=== PATIENT | female | born 1925 | race Caucasian/White ===

== ENCOUNTER 2016-10-03 13:22 | Emergency (ER) | payer MEDICARE, OTHER ==
[2016-10-03 13:31] VITALS: RESP 18
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
--- NOTE | 2016-10-03 14:40 | XR ---
EXAMINATION TYPE: XR Hip Complete RT DATE OF EXAM: 10/03/2016 2:22 PM COMPARISON: NONE HISTORY: 89 year-old female right hip dislocation TECHNIQUE: AP and frog-leg lateral views FINDINGS: While there is eccentric positioning of the femoral head component of the prosthesis, there is no ari dence of dislocation. Ectopic ossification about the greater trochanter and superior aspect of the hi p joint. Some chronic retained metallic debris seen superior to the femoral neck component of the pro sthesis. As compared to 04/15/2015, there is new lucency throughout the greater trochanter. No peripros thetic fracture seen. IMPRESSION: 1. No evidence of prosthetic dislocation or acute fracture. 2. However, there is eccentric positioning of the femoral head component in the acetabular cup. Findi ngs suggest wear of the polyethylene spacer. Given new lucency within the greater trochanter as joann red to 2014, correlation should be made for loosening and particle disease.
[2016-10-03 17:41] VITALS: BP 183/75; PULSE 61; TEMP 97.6
== END 2016-10-03 17:41 | disposition home or self-care (01) ==
LOC: EC 13:22
DX: M25.551 Pain in right hip (principal); E11.9 Type 2 diabetes mellitus without complications; I11.0 Hypertensive heart disease with heart failure; I50.9 Heart failure, unspecified; E07.9 Disorder of thyroid, unspecified; Z95.0 Presence of cardiac pacemaker; Z96.641 Presence of right artificial hip joint; Z79.82 Long term (current) use of aspirin; Z79.84 Long term (current) use of oral hypoglycemic drugs; Z79.899 Other long term (current) drug therapy; Z88.0 Allergy status to penicillin; Z88.5 Allergy status to narcotic agent; Z87.891 Personal history of nicotine dependence
CPT/HCPCS: 73502; 99283

== ENCOUNTER 2017-01-28 09:51 | Emergency (ER) | payer MEDICARE, OTHER ==
[2017-01-28] MEDS ORDERED: SODIUM CHLORIDE 0.9% 1,000 ML IV STA (10:24)
[2017-01-28] MEDS ORDERED: ONDANSETRON 4 MG/2 ML VIAL IVP STA (10:24)
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
--- NOTE | 2017-01-28 12:17 | CT ---
EXAMINATION TYPE: CT brain wo con DATE OF EXAM: 01/28/2017 12:08 PM COMPARISON: 02/22/13 HISTORY: generalized weakness CT DLP: 953.[address] of the brain was performed. The ventricles, basal cisterns and sulci overlying the cerebral convexities demonstrate moderate enla rgement. There is no evidence for intracranial hemorrhage or sulcal effacement. There is decreased attenuation about the periventricular white matter and deep white matter of both c erebral hemispheres, compatible with chronic small vessel ischemia. Differential diagnosis does inclu de demyelination. No mass effects are seen.No midline shift. Osseous calvarium is intact. If symptoms persist consider MRI. IMPRESSION: 1. Age related atrophic and chronic small vessel ischemic change without acute intracranial process s een at this time.
[2017-01-28 12:57] LABS: Basophils # (A) 0.2 k/uL (0-0.2); Basophils % (A) 1 %; CH 34.7; CHCM 33.9; Eosinophils # (A) 0.1 k/uL (0-0.7); Eosinophils % (A) 1 %; HCT 38.8 % (34.0-46.0); HDW 3.15; HGB 13.2 gm/dL (11.4-16.0); Luc # (Auto) 0.42; Luc % (Auto) 2; Lymphocytes # (A) 8.5 k/uL (1.0-4.8); Lymphocytes % (A) 44 %; MCHC 33.9 g/dL (31.0-37.0); Macrocytosis Slight; Mean Platelet Volume 7.8; Monocytes # (A) 1.3 k/uL (0-1.0); Monocytes % (A) 7 %; Neutrophils # (A) 8.8 k/uL (1.3-7.7); Neutrophils % (A) 46 %; RBC 3.76 m/uL (3.80-5.40); RDW 13.9 % (11.5-15.5); WBC 19.3 k/uL (3.8-10.6); WBC (Perox) 17.41
[2017-01-28 13:01] LABS: MCV 103.1 fL (80.0-100.0)
--- NOTE | 2017-01-28 13:05 | XR ---
EXAMINATION TYPE: XR abdomen acute w cxr DATE OF EXAM: 01/28/2017 12:15 PM COMPARISON: NONE HISTORY: Vomiting and shortness of breath TECHNIQUE: Single AP chest upright and supine views abdomen FINDINGS: Filter is within the lower abdomen. Vascular calcification is present. Nonspecific bowel ga s is present. Air is within the colon. Small bowel loops contain air within the left midabdomen. Degenerative changes are within the scoliotic lumbar spine. Right hip prosthesis is present. No suspicious air-fluid levels or differential air-fluid levels are present. No free air is present. An old fracture of the left neck is present. Right shoulder prosthesis is present. IMPRESSION: 1. Nonspecific abdomen.
[2017-01-28 13:06] LABS: INR 1.1 (<1.1); Prothrombin Time 11.2 sec (9.0-12.0)
[2017-01-28 13:14] LABS: Creatine Kinase <20 U/L (30-135)
[2017-01-28 13:19] LABS: ALT 24 U/L (9-52); AST 36 U/L (14-36); Alkaline Phosphatase 96 U/L (38-126); Amylase 53 U/L (30-110); Anion Gap 11 mmol/L; Blood Urea Nitrogen 36 mg/dL (7-17); Calcium 9.7 mg/dL (8.4-10.2); Carbon Dioxide 27 mmol/L (22-30); Chloride 102 mmol/L (98-107); Glucose 142 mg/dL (74-99); Non-African American GFR(MDRD) >60 (>60 ml/min/1.73 sqM); Potassium 4.8 mmol/L (3.5-5.1); Sodium 140 mmol/L (137-145); Total Bilirubin 0.8 mg/dL (0.2-1.3); Total Protein 7.1 g/dL (6.3-8.2)
[2017-01-28 13:27] LABS: Creatine Kinase MB 0.8 ng/mL (0.0-2.4); Troponin I 0.021 ng/mL (0.000-0.034)
[2017-01-28] MEDS ORDERED: METOCLOPRAMIDE 5 MG/ML 2 ML VIAL IVP STA (13:52)
[2017-01-28 14:52] LABS: Amorphous Sediment,Urine Rare /hpf; Appearance,Urine Clear (Clear); Bilirubin,Urine Negative (Negative); Glucose,Urine (UA) Negative (Negative); Ketones,Urine 1+ (Negative); Leukocyte Esterase,Urine Negative (Negative); Mucus,Urine Rare /hpf; Nitrite,Urine Negative (Negative); PH, Urine 5.5 (5.0-8.0); Particle Count 873; Protein,Urine 1+ (Negative); Specific Gravity,Urine 1.021 (1.001-1.035); Squamous Epithelial Cell,Urine <1 /hpf (0-4); UA Billing (MACRO vs. MICRO) MICRO; Urobilinogen,Urine <2.0 mg/dL (<2.0); WBC,Urine <1 /hpf (0-5)
[2017-01-28 15:26] VITALS: BP 174/72; PULSE 60; RESP 18; TEMP 97.2
== END 2017-01-28 15:25 | disposition home or self-care (01) ==
LOC: EC 09:51
DX: R13.10 Dysphagia, unspecified (principal); R11.2 Nausea with vomiting, unspecified; R94.31 Abnormal electrocardiogram [ECG] [EKG]; I10 Essential (primary) hypertension; E07.9 Disorder of thyroid, unspecified; E11.9 Type 2 diabetes mellitus without complications; Z87.891 Personal history of nicotine dependence; Z88.5 Allergy status to narcotic agent; Z88.0 Allergy status to penicillin; Z79.84 Long term (current) use of oral hypoglycemic drugs; Z79.82 Long term (current) use of aspirin; Z79.899 Other long term (current) drug therapy
CPT/HCPCS: 99284; 96374; 96375; 96361 ×3; 36415; 93005; 83880; 80053; 82150; 82550; 82553; 83690; 84443; 84484; 85025; 85610; 85730; 81001; 74022; 70450; J2765; J2405

== ENCOUNTER 2017-03-28 20:38 | Inpatient (IN) | payer MEDICARE, OTHER ==
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
[2017-03-28 22:17] LABS: Anisocytosis Slight; Basophils % (A) 0 %; CH 33.9; Eosinophils % (A) 0 %; HCT 33.8 % (34.0-46.0); HGB 11.3 gm/dL (11.4-16.0); Hypochromasia Slight; Luc # (Auto) 0.14; Luc % (Auto) 1; Lymphocytes % (A) 17 %; MCHC 33.5 g/dL (31.0-37.0); MCV 104.3 fL (80.0-100.0); Macrocytosis Moderate; Mean Platelet Volume 7.7; Monocytes # (A) 0.5 k/uL (0-1.0); Monocytes % (A) 4 %; Neutrophils % (A) 77 %; Poikilocytosis Slight; RBC 3.24 m/uL (3.80-5.40); WBC 11.7 k/uL (3.8-10.6); WBC (Perox) 11.49
[2017-03-28 22:21] LABS: Appearance,Urine Clear (Clear); Bacteria,Urine Occasional /hpf; Bilirubin,Urine Negative (Negative); Glucose,Urine (UA) Negative (Negative); Granular Casts,Urine 17 /lpf (0); Ketones,Urine 1+ (Negative); Leukocyte Esterase,Urine Negative (Negative); Mucus,Urine Rare /hpf; Nitrite,Urine Negative (Negative); PH, Urine 5.5 (5.0-8.0); Particle Count 4044; Protein,Urine 1+ (Negative); RBC,Urine 5 /hpf (0-5); Specific Gravity,Urine 1.018 (1.001-1.035); Squamous Epithelial Cell,Urine <1 /hpf (0-4); UA Billing (MACRO vs. MICRO) MICRO; Urobilinogen,Urine <2.0 mg/dL (<2.0); WBC,Urine 3 /hpf (0-5)
[2017-03-28 22:34] LABS: Calcium 9.2 mg/dL (8.4-10.2); Potassium 5.2 mmol/L (3.5-5.1); Total Bilirubin 0.4 mg/dL (0.2-1.3); Total Protein 6.3 g/dL (6.3-8.2)
--- NOTE | 2017-03-28 22:52 | CT ---
EXAM: CT Head Without Intravenous Contrast CLINICAL HISTORY: Reason: Pain. Recent falls TECHNIQUE: Axial computed tomography images of the head/brain without intravenous contrast. CTDI is 57.40 mGy and DLP is 958.40 mGy-cm. This CT exam was performed using one or more of the following dose reduction techniques: automated exposure control, adjustment of the mA and/or kV according to patient size, and/or use of iterative reconstruction technique. COMPARISON: CT head on 01/28/2017 FINDINGS: Brain: No acute infarct or hemorrhage identified. No extra-axial fluid collection. No mass effect or midline shift. Stable scattered areas of hypoattenuation in the supratentorial white matter likely represent chronic small vessel ischemic changes. Probable tiny remote lacunar infarcts in the basal ganglia. Ventricles and sulci: Stable prominence of the ventricles and sulci is likely secondary to cerebral volume loss. Skull: Mild hyperostosis frontalis interna. No bony lesion or fracture. Cerclage wire partially visualized around the posterior spinous processes of the upper cervical spine. Subcutaneous tissues: Normal. Sinuses: Normal. No air-fluid levels or mucosal thickening. Orbits: Bilateral lens implants. Other: Atherosclerotic calcifications in the intracranial vasculature. IMPRESSION: 1. No acute intracranial abnormality. 2. Stable chronic small vessel ischemic changes and cerebral volume loss.
--- NOTE | 2017-03-28 23:14 | XR ---
EXAM: XR Pelvis, 1 or 2 Views CLINICAL HISTORY: Reason: Right hip pain status post fall TECHNIQUE: Frontal view of the pelvis. COMPARISON: Pelvis radiographs on 08/02/2016 FINDINGS: Bones/joints: No acute fracture or dislocation identified. Changes of right total hip arthroplasty with stable appearance of the hardware. No hardware complication. Generalized osteopenia. Degenerative changes of the left hip. The left superior and inferior pubic rami appear similar compared to prior exam in 2016 without definite acute fracture identified, but evaluation is limited by rotation. Soft tissues: IVC filter projected over the lower abdomen. Vascular calcifications. IMPRESSION: Stable changes of right total hip arthroplasty. No definite acute abnormality identified.
--- NOTE | 2017-03-28 23:18 | XR ---
EXAM: XR Chest, 2 Views CLINICAL HISTORY: Reason: Pain status post fall TECHNIQUE: Frontal and lateral views of the chest. COMPARISON: None FINDINGS: Lungs/pleura: Elevation of the left hemidiaphragm with mild left basilar atelectasis. No focal consolidation. No pleural effusion or pneumothorax. Heart/mediastinum: Enlargement of the cardiac silhouette. Atherosclerotic calcifications in the aorta. Left-sided pacemaker in place. Soft tissues: Unremarkable. Bones: No acute fracture. Right shoulder arthroplasty partially visualized on frontal view. Prominent degenerative changes of the left shoulder partially visualized. Osteopenia. Degenerative changes of the spine with age-indeterminate compression deformity of a midthoracic vertebral body. IMPRESSION: 1. Elevation of the left hemidiaphragm with mild left basilar atelectasis. No focal consolidation, pleural effusion, or pneumothorax. 2. Age-indeterminate compression deformity of a midthoracic vertebral body
[2017-03-28] MEDS ORDERED: ONDANSETRON 4 MG/2 ML VIAL IVP STA (23:43)
[2017-03-28] MEDS ORDERED: SODIUM CHLORIDE 0.9% 1,000 ML IV STA ×2 (23:45)
[2017-03-29] MEDS ORDERED: ONDANSETRON 4 MG/2 ML VIAL IVP PRN (00:27)
[2017-03-29] MEDS ORDERED: NALOXONE 0.4 MG/ML 1 ML VIAL IV PRN (00:27)
[2017-03-29 00:53] LABS: ABG Base Excess -12.3 mmol/L; ABG HCO3 11 mmol/L (21-25); ABG Oxygen Saturation 97.8 % (94-97); ABG PH 7.39 (7.35-7.45); ABG PO2 89 mmHg (83-108)
[2017-03-29 00:55] LABS: ABG PCO2 18 mmHg (35-45)
[2017-03-29] MEDS: LEVOTHYROXINE 88 MCG TAB PO SCH (06:08)
[2017-03-29 07:04] LABS: Creatine Kinase MB 5.7 ng/mL (0.0-2.4); Troponin I 1.21 ng/mL (0.000-0.034)
[2017-03-29] MEDS ORDERED: ALPHA LIPOIC ACID 600 MG PO SCH (09:00)
[2017-03-29] MEDS ORDERED: PRIMROSE OIL PO SCH (09:00)
[2017-03-29] MEDS ORDERED: NON-FORMULARY DRUG (Cinnamon Bark [Cinnamon] 1,000 MG) PO SCH (09:00)
[2017-03-29] MEDS ORDERED: CHROMIUM PICOLINATE 200 MCG PO SCH (09:00)
[2017-03-29] MEDS: ENOXAPARIN 40 MG/0.4 ML SYRINGE SQ SCH (10:32)
[2017-03-29] MEDS: PANTOPRAZOLE 40 MG TABLET PO SCH (10:32)
[2017-03-29 11:26] LABS: Calcium 8.4 mg/dL (8.4-10.2); Potassium 4.8 mmol/L (3.5-5.1)
[2017-03-29] MEDS ORDERED: BISACODYL 10 MG SUPP RECTAL STA (11:26)
[2017-03-29 11:53] LABS: Creatine Kinase MB 7.2 ng/mL (0.0-2.4); Troponin I 1.36 ng/mL (0.000-0.034)
[2017-03-29] MEDS: CHOLECALCIFEROL 1,000 UNIT TAB PO SCH (12:43)
[2017-03-29] MEDS: ASCORBIC ACID 500 MG TAB PO SCH (12:43)
[2017-03-29] MEDS: VITAMIN E (DL,TOCOPHERYL ACET) 400 UNIT CAP PO SCH (12:43)
[2017-03-29] MEDS: B COMPLEX-VIT C-VIT E-ZINC 1 EACH TAB PO SCH (12:43)
[2017-03-29] MEDS: CALCIUM CARB-VIT D 500MG-200UN 1 EACH TAB PO SCH (12:43)
[2017-03-29 17:32] LABS: Glucose,Whole Blood 146 mg/dL (75-99)
[2017-03-29] MEDS: metFORMIN 500 MG TAB PO SCH (18:35)
[2017-03-29] MEDS: TRIMETHOPRIM 100 MG TAB PO SCH (20:35)
[2017-03-30] MEDS: LEVOTHYROXINE 88 MCG TAB PO SCH (06:20)
[2017-03-30] MEDS: ENOXAPARIN 40 MG/0.4 ML SYRINGE SQ SCH (07:45)
[2017-03-30] MEDS: PANTOPRAZOLE 40 MG TABLET PO SCH (07:46)
[2017-03-30] MEDS: metFORMIN 500 MG TAB PO SCH ×2 (07:46→17:08)
[2017-03-30] MEDS: SODIUM BICARBONATE TAB 650 MG TAB PO SCH ×3 (07:48→19:05)
[2017-03-30 08:10] LABS: Anisocytosis Slight; CHCM 32.5; HCT 35.6 % (34.0-46.0); HDW 3.82; HGB 11.5 gm/dL (11.4-16.0); Hypochromasia Moderate; MCH 34.4 pg (25.0-35.0); MCHC 32.3 g/dL (31.0-37.0); MCV 106.5 fL (80.0-100.0); Macrocytosis Marked; Mean Platelet Volume 7.8; Poikilocytosis Slight; RBC 3.34 m/uL (3.80-5.40); RDW 17.7 % (11.5-15.5); WBC 14.6 k/uL (3.8-10.6); WBC (Perox) 15.45
[2017-03-30 08:27] LABS: Calcium 8.6 mg/dL (8.4-10.2); Potassium 4.5 mmol/L (3.5-5.1)
[2017-03-30 09:08] LABS: Add Differential Manual Differential
[2017-03-30 09:09] LABS: Nucleated Red Blood Cells 0 /100 WBC (0-0); Total Cells Counted 100
[2017-03-30 09:10] LABS: Crenated RBC Present
--- NOTE | 2017-03-30 10:12 | HP ---
CHIEF COMPLAINT: Falls at home. HISTORY OF PRESENT ILLNESS: This 89 year old female was brought into the emergency room with some altered mental status and a couple of falls at home. The patient lives in [facility]. The falls were not witnessed. The patient apparently there was some conversation that the patient had just got weak and legs came out. This was according to the son. This is some of the data collected from caregivers. The patient otherwise denied any symptoms of chest pain, shortness of breath, headaches or dizziness. The patient was evaluated in the emergency room and noted to have no evidence of any head injury. The patient has been gradually feeling ill for the past about a year now. She is fairly weak. Her intake is fair. PAST MEDICAL HISTORY: Significant for hypertension for longstanding history. History of chronic lymphocytic leukemia. 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 The patient is also asplenic. PAST SURGICAL HISTORY: Significant for hip surgeries, splenectomy. She did have a cervical spine fracture for which she had a halo placed and no surgical intervention. PERSONAL HISTORY: Never a smoker, alcohol none. Medications include: 1. Metformin 1000 mg daily. 2. Vitamin E. 3. Vitamin B. 4. ( ). 5. Omeprazole 40 mg daily. 6. Levothyroxine 88 mcg daily. 7. Cinnamon. 8. Acromion. 9. Vitamin D3. 10. Calcium. 11. Magnesium. 12. Ascorbic acid. 13. ( ). SOCIAL HISTORY: The patient is and lives at the [facility]. Son and daughter pay good attention. FAMILY MEDICAL HISTORY: The patient's mother had hypertension, dementia. She has one younger sister living with fair health. The patient has two sons. One son had a history of coronary artery disease and aortic aneurysm repair. The other son has history of alcohol dependency. The patient has a daughter who has had a history of aortic aneurysm repair. REVIEW OF SYSTEMS: NEURO: Denies any headaches. Dizziness. PSYCH: No history of anxiety or depression. CARDIAC: Denies chest pain, angina or palpitations. RESPIRATORY: Denies shortness of breath but does appear mildly tachypneic. GI: Denies any nausea, vomiting, abdominal pain or diarrhea. Has constipation. : No symptoms of dysuria or hematuria. Has no incontinence or frequency. She does not take her Lasix. EXTREMITIES: Has some chronic lower distal extremity pain, edema and has chronic hip pain. CONSTITUTIONAL: No fever or chills. HEMATOLOGICAL: No anemia or bleeding disorder. Does have a history of lymphocytic leukemia. SKIN: Fragile. ENT: Decreased hearing. EYES: Some decreased vision. PHYSICAL EXAMINATION: Elderly female pleasant but mildly confused compared to her usual pleasant demeanor. Vital signs reveals temperature 97.2, pulse 61, respirations 18, blood pressure 118/58. Pulse ox 98%. HEENT: Normocephalic. NECK: Decreased range of motion. Pupils are reactive. Nostrils clear. Oral cavity is dry. Ears reveals no drainage, Neck reveals no JVD or carotid bruits. No thyromegaly. No supraclavicular lymph nodes. CHEST: Clear to auscultation. Decreased air flow at the left base. CARDIAC: Distant heart sounds, S1, S2 with no gallops. Regular rhythm. Systolic murmur 2/6 left sternal border. Abdomen is soft. No palpable masses. Bowel sounds normal. No organomegaly. No abdominal bruits. Extremities reveals trace edema. Decreased range of motion at the hip joints. Neurologically awake, mildly lethargic. Does recognize who I am. Speech is softer than usual. Does move both upper extremities fairly well and lower extremities well with decreased range of motion. The patient does have generalized weakness, muscle mass and decreased generalized tone. Deep tendon reflexes are decreased. Plantars are equivocal bilateral. Laboratory assessment: Electrolytes which revealed hemoglobin of 11.3. White count of 11.7. Platelet 290,000. Blood gases revealed a pH of 7.3 and PCO2 18 , PO2 89, electrolytes revealed sodium 139, potassium 5.2, chloride 106, CO2 content 12 with an anion gap of 21. BUN 42, creatinine 1.80, glucose 175. AST 42, troponin 0.048. BNP 7.70. ( ) 1.210. EKG did reveal pacemaker rhythm with T-wave inversions. ASSESSMENT: 1. Falls at home. 2. Hyperkalemia. 3. Acute on chronic renal failure. 4. Combination of mild respiratory alkalosis and metabolic acidosis. 5. Elevated troponins, suspect supply demand status. 6. Pacemakers status. 7. Encephalopathy. PLAN: Continue present medical regimen with IV hydration. The patient's electrolytes rechecked today. Potassium down to 4.8. Anion gap down to 18. BUN 45, creatinine down to 1.69. Continue present medical regimen with hydration. The patient's condition discussed with the patient's son and the patient. The patient will be a NO CODE STATUS as per previous request. Prognosis remains guarded. The patient may require placement at nursing facility for rehab and if it does not show any improvements, but probably be a best candidate for hospice. AISHAD
--- NOTE | 2017-03-30 12:59 | P.PN ---
Subjective Principal diagnosis: History present illness: This 89-year-old was admitted to the hospital after falling couple of times at home. The falls are noted to be secondary to generalized weakness. The patient had evidence of some dehydration which is being corrected. She was acidotic /respiratory alkalosis. Her cardiac enzymes were elevated however suspect this is due to demand supply related patient does have history patient does have history of arthrosclerotic heart disease and is a pacemaker. Due to her advanced age and multiple other ailments she is not somebody who requires further cardiac evaluation. Patient does have generalized weakness is arousable but is drowsy she is somewhat confused. She didn't recognize. Promptly by my name. Her intake is poor. Condition discussed with the patient's son and [id number]. Prognosis remains guarded May require placement versus hospice. We'll review regarding that tomorrow if she doesn't make any headway. REVIEW OF systems: Very limited. Patient does complain of aches and pains otherwise denies chest pain shortness of breath patient noted to be mildly tachypneic. Does say that she is hungry yet she doesn't eat when offered. No reported fever chills. Urinary incontinence/ bowel movement post suppository Objective - Vital Signs Vital signs: Vital Signs Temp 97.3 F L 03/30/17 07:00 Pulse 82 03/30/17 07:00 Resp 18 03/30/17 07:00 BP 134/64 03/30/17 07:00 Pulse Ox 97 03/30/17 07:00 Intake & Output 03/29/17 03/30/17 03/30/17 18:59 06:59 18:59 Intake Total 800 830 Balance 800 830 Intake: IV 240 ns@20 240 Intake, IV Titration 800 Amount Sodium Chloride 0.9% 1, 800 000 ml @ 100 mls/hr IV . Q10H STA Rx#:[id number] Oral 590 Other: Voiding Method Bedside Commode Bedside Commode Bedpan Incontinent # Voids 3 2 # Bowel Movements 3 PHYSICAL EXAMINATION: Cooperative, at present in no acute distress. HEENT: Neck supple. No JVD. Chest: Clear to auscultation Cardiac: Normal S1-S2 no gallops left sternal border systolic murmur . Abdomen: Soft bowel sounds present. Extremities: No edema no tenderness Neurologically : Sleeping, easily arousable but falls back to sleep very easily. Does move upper extremities adequately - Labs CBC & Chem 7: 03/30/17 07:33 03/30/17 07:33 Labs: Abnormal Lab Results - Last 24 Hours (Table) 03/29/17 03/30/17 03/30/17 Range/Units 17:30 07:33 07:33 WBC 14.6 H (3.8-10.6) k/uL RBC 3.34 L (3.80-5.40) m/uL MCV 106.5 H (80.0-100.0) fL RDW 17.7 H (11.5-15.5) % Neutrophils # (Manual) 8.8 H (1.3-7.7) k/uL Monocytes # (Manual) 1.2 H (0-1.0) k/uL Chloride 114 H (98-107) mmol/L Carbon Dioxide 12 L (22-30) mmol/L BUN 58 H (7-17) mg/dL Creatinine 1.72 H (0.52-1.04) mg/dL POC Glucose (mg/dL) 146 H (75-99) mg/dL Assessment and Plan Plan: ASSESSMENT: 1. Altered mental status. 2. Dehydration. 3. Chronic kidney disease. 4. Acute renal failure secondary to dehydration. 5. Mixed metabolic acidosis and respiratory alkalosis. 6. Hyperkalemia resolved. 7. Marked debility. 8. Chronic lymphocytic leukemia. PLAN: Continue present medical regimen with hydration, prognosis remains guarded. Depending on how she does in the next 24 hours final decision to be made regarding hospice versus rehab..
[2017-03-30] MEDS: ASCORBIC ACID 500 MG TAB PO SCH (14:57)
[2017-03-30] MEDS: B COMPLEX-VIT C-VIT E-ZINC 1 EACH TAB PO SCH (14:58)
[2017-03-30] MEDS: CALCIUM CARB-VIT D 500MG-200UN 1 EACH TAB PO SCH (14:58)
[2017-03-30] MEDS: VITAMIN E (DL,TOCOPHERYL ACET) 400 UNIT CAP PO SCH (14:58)
[2017-03-30] MEDS: CHOLECALCIFEROL 1,000 UNIT TAB PO SCH (14:58)
[2017-03-30] MEDS: ACETAMINOPHEN TAB 325 MG TAB PO PRN (19:04)
[2017-03-30] MEDS: TRIMETHOPRIM 100 MG TAB PO SCH (19:05)
[2017-03-31] MEDS: LEVOTHYROXINE 88 MCG TAB PO SCH (06:05)
[2017-03-31] MEDS ORDERED: SODIUM CHLORIDE 0.9% 1,000 ML IV SCH (06:45)
[2017-03-31 07:43] LABS: Calcium 8.1 mg/dL (8.4-10.2)
[2017-03-31 07:45] LABS: Potassium 5.5 mmol/L (3.5-5.1)
[2017-03-31 07:51] VITALS: BP 130/62; PULSE 62; RESP 16; TEMP 97.5
[2017-03-31] MEDS: metFORMIN 500 MG TAB PO SCH (08:59)
[2017-03-31] MEDS: PANTOPRAZOLE 40 MG TABLET PO SCH (08:59)
[2017-03-31 10:38] VITALS: BMI 23.8
[2017-03-31] MEDS: ACETAMINOPHEN TAB 325 MG TAB PO PRN ×2 (11:43→15:51)
[2017-03-31] MEDS ORDERED: LORazepam 2 MG/ML SYRINGE IV PRN (21:31)
[2017-03-31] MEDS ORDERED: HYDROmorphone 2 MG TAB PO PRN (21:39)
--- NOTE | 2017-04-01 08:32 | PN ---
CHIEF COMPLAINT: Reevaluation. HISTORY OF PRESENT ILLNESS: This 89-year-old was admitted to the hospital with falls at home. The patient's general condition is declining. Her renal function is worsening. Patient' general condition is discussed with the patient 's family and recommended hospice terminal care. They are in acceptance of that. The patient will be transferred to hospice. The patient is arousable, talks. She recognizes me well. However, the patient will not be able to swallow food and is declining to eat much. REVIEW OF SYSTEMS: NEURO: Denies any headaches, dizziness. PSYCH: Anxiety. CARDIAC: Denies chest pain, palpitation. RESPIRATORY: Denies shortness of breath, cough. GI: No nausea, vomiting, abdominal pain. : No symptoms of dysuria or hematuria. EXTREMITIES: No pain. Does complain of some back pain. CONSTITUTIONAL: No fever or chills. PHYSICAL EXAMINATION: A very pleasant elderly female. Temperature 97.3, pulse 88, respirations 18, blood pressure 134/64, pulse ox 97% on room air. HEENT: Normocephalic. NECK: No JVD. CHEST: Clear to auscultation. CARDIAC: Normal S1, S2 with no gallops. Systolic murmur 2/6 left sternal border. ABDOMEN: Soft. Bowel sounds present. Extremities reveal trace edema. NEUROLOGICAL: Awake, alert to person and place. Moves both upper extremities adequately. LABORATORY ASSESSMENT: White count 14.6, hemoglobin 11.5, platelets 213. Sodium 141, potassium 5.5, chloride 115, CO2 content 11, anion gap 15, BUN 72, creatinine 2.21. Glucose was 58. ASSESSMENT: 1. Acute on chronic renal failure. 2. Mild hyperkalemia. 3. Chronic lymphocytic leukemia. 4. Encephalopathy. PLAN: The patient at present stable. Continue present medical regimen. After discussion with the patient's family, we have elected no IV hydration. The patient will be made comfortable and will be transferred home under hospice services. Prognosis remains poor. MTDD
--- NOTE | 2017-04-02 15:56 | CDI ---
In responding to this query, please exercise your independent professional judgment. The [facility] Coding Staff and Clinical Documentation Specialists appreciate your assistance in clarifying documentation, maintaining compliance with coding guidelines, accurately documenting patients condition and capturing severity of illness. The fact that a question is asked does not imply that any particular answer is desired or expected. Communication forms are a method of clarifying documentation and are not made part of the Legal Health Record. Thank you in advance for your clarification. Last Revision, July 2015 Shannan Diallo [address] [place] [address] Documentation Clarification Form Mortality Review Date: 04/02/2017 3:43:00 PM From: Divya Klein RN, CCDS Admit Date: 03/29/2017 12:31:00 AM Patient Name: Az Hogan Visit Number: [id number] Dr. Bernardo Daugherty Encephalopathy is documented in the H&P and Progress Notes and requires further specifity History/Risk factors: dementia, recent falls, HTN, CLL, ASHD, DM, CKD Clinical Indicators: 03/31 Attending Progress Note: "The patient's general condition is declining. Her renal function is worsening. Encephalopathy." Labs: WBC: 11.7, Hgb 11.3, k+ 5.2/4.8, BUN 42/45, CR 1.8/1.69, CKMB: 5.7/7.2, Trop .458/1.21/1.36, BNP 7170 CT Brain: Stable c sm vessel ischemic changes and cerebral volume loss Treatment: IVF, IVF bolus In your professional opinion, can you please clarify the specific type of encephalopathy, if known? Metabolic Encephalopathy Septic Encephalopathy Toxic Encephalopathy Traumatic Encephalopathy Other, please specify Unable to determine Please document in your progress notes and discharge summary in order to capture severity of illness and risk of mortality. Include clinical findings that support your diagnosis. FYI: Press F11 to launch patient chart. Place X here if this finding has no clinical significance, is not applicable or if you are not able to provide any additional documentation. MTDD
--- NOTE | 2017-04-02 16:07 | CDI ---
In responding to this query, please exercise your independent professional judgment. The [facility] Coding Staff and Clinical Documentation Specialists appreciate your assistance in clarifying documentation, maintaining compliance with coding guidelines, accurately documenting patients condition and capturing severity of illness. The fact that a question is asked does not imply that any particular answer is desired or expected. Communication forms are a method of clarifying documentation and are not made part of the Legal Health Record. Thank you in advance for your clarification. Last Revision, July 2015 Shannan Diallo [address] [place] [address] Documentation Clarification Form Mortality Review Date: 04/02/2017 3:56:00 PM From: Divya Klein RN, CCDS Admit Date: 03/29/2017 12:31:00 AM Patient Name: Az Hogan Visit Number: [id number] Dr. Bernardo Daugherty History/Risk Factors : CKD, DM, HTN, CLL Clinical Indicators : Current BUN: 42/45/58/72 CR: 1.8/1.69/1.72/2.21 GFR: 26/28/21 02/18/17Patients Baseline: BUN/CR/GFR:35/1.02/51 03/31 Attending Progress Note: :"The patient's general condition is declining. Her renal function is worsening. Acute on chronic renal failure." Treatment: IVF, IVF Bolus In order to capture the severity of condition, please clarify if the condition signifies: CKD Stage 1 (GFR > 90) CKD Stage 2 (GFR 60-89) CKD Stage 3 (GFR 30-59) CKD Stage 4 (GFR 15-29) CKD Stage 5 (GFR <15) ESRD Unable to determine Other condition, please specify Please document in your progress notes and discharge summary in order to capture severity of illness and risk of mortality. Include clinical findings that support your diagnosis. FYI: Press F11 to launch patient chart. Place X here if this finding has no clinical significance, is not applicable or if you are not able to provide any additional documentation. MTDD
--- NOTE | 2017-04-02 16:18 | CDI ---
In responding to this query, please exercise your independent professional judgment. The [facility] Coding Staff and Clinical Documentation Specialists appreciate your assistance in clarifying documentation, maintaining compliance with coding guidelines, accurately documenting patients condition and capturing severity of illness. The fact that a question is asked does not imply that any particular answer is desired or expected. Communication forms are a method of clarifying documentation and are not made part of the Legal Health Record. Thank you in advance for your clarification. Last Revision, July 2015 Shannan Diallo [address] [facility] [place] [address] Documentation Clarification Form Mortality review Date: 04/02/2017 4:07:00 PM From: Divya Klein RN, CCDS Admit Date: 03/29/2017 12:31:00 AM Patient Name: Az Hogan Visit Number: [id number] Dr. Bernardo Rose pressure ulcer was documented in the nursing assessments. History/Risk Factors: Dementia, recent falls, dehydration, nausea, KYLE Clinical Indicators: 03/30 2050 Wound rail specialist: "pressure Injury Coccyx, stage 2." Skin assessment on admission notes: slight breakdown to buttocks." 03/30 2047 skin assessment has changed to stage 2 bed sore, fragile with erythema." Location: Buttocks and Coccyx Wound description: see nursing documentation above Treatment: Deuoderm Dietary consult with Mohanerdaniel ordered for additional protein Elements for accurate and compliant documentation of an ulcer: * The location/laterality of the ulcer * Etiology (decubitus/pressure, diabetic, PVD) * Stage I-IV, Unstageable, Suspected Deep Tissue Injury (To the deepest stage) * If the ulcer was present at admission (POA) or occurred after admission In your professional opinion, can you please clarify the diagnosis, location, laterality and whether present on admission (POA): Stage 1 Pressure/Decubitus Ulcer (intact skin, non-blanching redness of local area) Stage 2 Pressure/Decubitus Ulcer (Partial thickness, loss of dermis, pink wound bed) Stage 3 Pressure/Decubitus Ulcer (Full thickness tissue loss) Stage 4 Pressure/Decubitus Ulcer (Full thickness tissue loss with exposed bone, tendon, or muscle. May have slough or eschar present) Unstageable Unable to determine Other condition, please specify *Please indicate cause (if known). Please document in your discharge summary in order to capture severity of illness and risk of mortality. Include clinical findings that support your diagnosis. FYI: Press F11 to launch patient chart. DALLIN
--- NOTE | 2017-04-27 13:21 | P.DS ---
Providers Date of admission: 03/29/17 00:31 Attending physician: Bernardo Daugherty Primary care physician: eBrnardo Daugherty Hospital Course: History present illness/Hospital course: This 89-year-old female was admitted to the hospital after being brought to emergency room because of frequent falling at home. The patient lives at the [facility], the patient son gives some history. The patient had just got weak in the legs and given out. No true significant fall. The patient did have a CAT scan of the brain done which did not reveal any acute infarct or changes. The patient did exhibit confusion. She has had mild cognitive impairment but this was more than her usual status. There was no delirium. The patient had no evidence to suggest any infection. Her renal function showed evidence of acute renal failure. The patient does have a history of chronic kidney disease stage III. She is also nutritionally depleted to some degree partly due to advanced age and chronic illnesses. She did have a small sacral decubitus stage II with no evidence of infection. She is also known to have chronic lymphocytic leukemia. 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 No evidence of any significant infection. Following admission patient' s sudden IV hydration due to dehydration. He did show some improvement in her general status however was markedly debilitated and due to decreased urine output and progressive azotemia with a discussion with the family and recommended hospice care to which they were agreeable. The patient actually before the hospice nurse came to see the patient. She had History of hypertensive cardiovascular disease and ASHD. She has significant degenerative arthritis affecting the hip joints. History of diabetes mellitus adequately controlled. History of hypothyroidism on replacement therapy. Final diagnosis to include 1. Acute on chronic renal failure 2. Acute tubular necrosis causing renal failure 3. Dehydration 4. Chronic lymphocytic leukemia 5. Metabolic encephalopathy 6. Diabetes mellitus with peripheral neuropathy 7. Chronic kidney disease stage III 8. Debility 9. Nutritional status 10. 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 Hypothyroidism 13. Hypertensive cardio vascular disease and ASHD Patient Condition at Discharge: Undetermined Plan - Discharge Summary New Discharge Prescriptions: No Action Trimethoprim [Trimpex] 50 mg PO HS Levothyroxine Sodium [Synthroid] 88 mcg PO DAILY Ascorbic Acid [Vitamin C] 1,000 mg PO QAM Vitamin B Complex 1 cap PO QAM Cholecalciferol [Vitamin D3] 1,000 unit PO QAM metFORMIN HCL [metFORMIN HCL ER] 1,000 mg PO AC-SUPPER Alpha Lipoic Acid 600mg 1 tab PO DAILY Cinnamon Bark [Cinnamon] 1,000 mg PO DAILY Chromium Picolinate 200 mcg PO DAILY Calcium/Magnesium/D3 1 tab PO DAILY Vitamin E (Dl,Tocopheryl Acet) [Vitamin E] 400 unit PO DAILY Retsof Oil 500mg 1 cap PO DAILY Omeprazole [PriLOSEC] 40 mg PO DAILY #30 capsule.dr Discharge Medication List Ascorbic Acid [Vitamin C] 1,000 mg PO QAM 04/15/15 [History] Levothyroxine Sodium [Synthroid] 88 mcg PO DAILY 04/15/15 [History] Trimethoprim [Trimpex] 50 mg PO HS 04/15/15 [History] Cholecalciferol [Vitamin D3] 1,000 unit PO QAM 04/16/15 [History] Vitamin B Complex 1 cap PO QAM 04/16/15 [History] metFORMIN HCL [metFORMIN HCL ER] 1,000 mg PO AC-SUPPER 04/30/16 [History] Alpha Lipoic Acid 600mg 1 tab PO DAILY 01/28/17 [History] Calcium/Magnesium/D3 1 tab PO DAILY 01/28/17 [History] Chromium Picolinate 200 mcg PO DAILY 01/28/17 [History] Cinnamon Bark [Cinnamon] 1,000 mg PO DAILY 01/28/17 [History] Omeprazole [PriLOSEC] 40 mg PO DAILY #30 capsule. 01/28/17 [Rx] Retsof Oil 500mg 1 cap PO DAILY 01/28/17 [History] Vitamin E (Dl,Tocopheryl Acet) [Vitamin E] 400 unit PO DAILY 01/28/17 [History] Follow up Appointment(s)/Referral(s): Bernardo Daugherty MD [Primary Care Provider] - 1-2 days Discharge Disposition: - Preliminary Cause of Preliminary Cause of : arf/ashd
== END 2017-03-31 23:15 | disposition expired | DRG 682 ==
LOC: EC 20:38 → 5ONC 03-29 00:31
PROVIDERS: ADMIT Internal Medicine; ATTEND Internal Medicine
DX: N17.9 Acute kidney failure, unspecified (principal); G93.41 Metabolic encephalopathy; E87.4 Mixed disorder of acid-base balance; L89.152 Pressure ulcer of sacral region, stage 2; N18.3 Chronic kidney disease, stage 3 (moderate); J98.11 Atelectasis; I13.0 Hypertensive heart and chronic kidney disease with heart failure and stage 1 through stage 4 chronic kidney disease, or unspecified chronic kidney disease; C91.10 Chronic lymphocytic leukemia of B-cell type not having achieved remission; E11.42 Type 2 diabetes mellitus with diabetic polyneuropathy; E87.5 Hyperkalemia; E86.0 Dehydration; E11.22 Type 2 diabetes mellitus with diabetic chronic kidney disease; I50.9 Heart failure, unspecified; F03.90 Unspecified dementia, unspecified severity, without behavioral disturbance, psychotic disturbance, mood disturbance, and anxiety; D64.9 Anemia, unspecified; Z51.5 Encounter for palliative care; I25.10 Atherosclerotic heart disease of native coronary artery without angina pectoris; E07.9 Disorder of thyroid, unspecified; F32.9 Major depressive disorder, single episode, unspecified; M19.90 Unspecified osteoarthritis, unspecified site; I87.8 Other specified disorders of veins; Z79.82 Long term (current) use of aspirin; Z79.84 Long term (current) use of oral hypoglycemic drugs; Z79.899 Other long term (current) drug therapy; Z87.891 Personal history of nicotine dependence; Z96.60 Presence of unspecified orthopedic joint implant; Z95.810 Presence of automatic (implantable) cardiac defibrillator; Z88.5 Allergy status to narcotic agent; Z88.0 Allergy status to penicillin; Z82.49 Family history of ischemic heart disease and other diseases of the circulatory system; W19.XXXA Unspecified fall, initial encounter
CPT/HCPCS: 36415; 36600; 70450; 71020; 72170; 80048; 80053; 81001; 82550; 82553; 82805; 83735; 83880; 84484; 85025; 93005